=== PATIENT | male | born 1990 | race Caucasian/White ===

== ENCOUNTER → 2022-05-10 | Outpatient (CLI) | payer OTHER ==
[2022-05-10 16:17] LABS: BASO # 0.05 K/mm3 (0.02-0.10); EOS # 0.28 K/mm3 (0.04-0.40); HEMATOCRIT 44.1 % (42.0-52.0); MEAN CELL VOLUME 92 fl (78-100); MEAN CORPUSCULAR HEMOGLOBIN 31 pg (27-31); MEAN CORPUSCULAR HGB CONC 34 g/dL (33-37); MEAN PLATELET VOLUME 8.8 fl (7.4-10.4); MONO # 0.82 K/mm3 (0.20-0.80); PLATELET COUNT 250 K/mm3 (130-400); RED BLOOD COUNT 4.82 M/mm3 (4.20-5.60); RED CELL DISTRIBUTION WIDTH 11.8 % (11.5-14.5); WHITE BLOOD COUNT 9.5 K/mm3 (4.8-10.8)
[2022-05-10 16:28] LABS: POTASSIUM 4.1 mmol/L (3.5-5.1)
[2022-05-10 16:29] LABS: ALBUMIN 4.5 g/dL (3.5-5.0)
[2022-05-10 16:30] LABS: CALCIUM 10.4 mg/dL (8.3-10.5)
[2022-05-10 16:31] LABS: TOTAL PROTEIN 7.3 g/dL (6.4-8.3)
[2022-05-10 16:33] LABS: TOTAL BILIRUBIN 0.7 mg/dL (0.2-1.2)
== END ==
LOC: LAB 16:01
PROVIDERS: Physician Assistant
DX: Z00.00 Encounter for general adult medical examination without abnormal findings (principal); Z13.220 Encounter for screening for lipoid disorders; R79.89 Other specified abnormal findings of blood chemistry